=== PATIENT | female | born 1990 | race Hispanic/Latino ===

== ENCOUNTER 2022-07-15 21:31 | Observation (INO) | payer MEDICAID ==
[~2022-07-15] VITALS: Ht 167.6 cm; Wt 93.5 kg
[~2022-07-15 21:31] MED LIST: IBUP-2077 PO
[2022-07-15 21:34] VITALS: BP 142/72
[2022-07-15] MEDS ORDERED: PREN-196 PO (21:53)
[2022-07-15 22:07] LABS: APPEARANCE,URINE CLOUDY (CLEAR); BILIRUBIN,URINE NEGATIVE (NEGATIVE); COLOR,URINE YELLOW (YELLOW); GLUCOSE, URINE (UA) NEGATIVE (NEGATIVE); KETONES,URINE NEGATIVE (NEGATIVE); LEUKOCYTE ESTERASE ,URINE NEGATIVE Leu/uL (NEGATIVE); NITRATE,URINE NEGATIVE (NEGATIVE); OCCULT BLOOD,URINE NEGATIVE (NEGATIVE); PROTEIN,URINE 10 mg/dL (NEGATIVE); UROBILINOGEN,URINE 3 mg/dL (0.2-1.0)
[2022-07-15 22:14] LABS: BACTERIA,URINE FEW /HPF (None Seen); MUCUS,URINE RARE LPF (None Seen); RBC,URINE 0-1 /HPF (0-1); SQUAMOUS EPITHELIAL CELL,UR MOD /HPF (0-2); WBC,URINE 0-1 /HPF (0-1)
[2022-07-15] MEDS: LACTATED RINGERS 1000ML 1,000 ML IV SCH (23:04)
[2022-07-16] MEDS: LACTATED RINGERS 1000ML 1,000 ML IV SCH (01:46)
== END 2022-07-16 08:00 | disposition home or self-care (01) ==
LOC: EDH 21:31 → INTOOBSV 21:32 → LDH 21:32 → EDH 21:41
PROVIDERS: ADMIT Obstetrics & Gynecology; ATTEND Obstetrics & Gynecology
DX: O99.891 Other specified diseases and conditions complicating pregnancy (principal); M54.50 Low back pain, unspecified; O26.893 Other specified pregnancy related conditions, third trimester; R10.30 Lower abdominal pain, unspecified; O99.323 Drug use complicating pregnancy, third trimester; F12.90 Cannabis use, unspecified, uncomplicated; Z3A.33 33 weeks gestation of pregnancy; W19.XXXA Unspecified fall, initial encounter; Y93.89 Activity, other specified; Y92.89 Other specified places as the place of occurrence of the external cause
CPT/HCPCS: 96360; 81001; 96361 ×2; G0378 ×10; G0379; J7120 ×2